=== PATIENT | male | born 1965 | race African-American/Black ===

== ENCOUNTER 2023-07-10 10:25 | Emergency (ER) | payer MEDICAID ==
[~2023-07-10] VITALS: Ht 182.9 cm; Wt 79.4 kg
[2023-07-10 10:32] VITALS: BP 149/73; PULSE 85; RESP 16; TEMP 97.8; O2SAT 96
[2023-07-10 13:03] VITALS: BP 134/71; PULSE 84; RESP 14; TEMP 97.2; O2SAT 100
== END 2023-07-10 12:50 | disposition home or self-care (01) ==
LOC: MED 10:25
DX: S60.512A Abrasion of left hand, initial encounter (principal); S80.212A Abrasion, left knee, initial encounter; S00.211A Abrasion of right eyelid and periocular area, initial encounter; F15.90 Other stimulant use, unspecified, uncomplicated; Z02.89 Encounter for other administrative examinations; Z98.890 Other specified postprocedural states; X58.XXXA Exposure to other specified factors, initial encounter; Y93.89 Activity, other specified; Y92.89 Other specified places as the place of occurrence of the external cause; Y99.8 Other external cause status
CPT/HCPCS: 90471; 90715; 99283